=== PATIENT | male | born 1955 | race Hispanic/Latino ===

== ENCOUNTER 2017-01-08 06:51 | Day surgery (SDC) | payer OTHER ==
--- NOTE | 2017-01-04 12:13 | Anesthesia Consultation ---
Anesthesia Consult and Med Hx - Airway Anesthetic Teeth Evaluation: Caps (top front) ROM Head & Neck: Adequate Mental/Hyoid Distance: Adequate Mallampati Class: Class II Intubation Access Assessment: Probably Good - Pulmonary Exam CTA: Yes - Cardiac Exam Cardiac Exam: RRR - Pre-Operative Health Status ASA Pre-Surgery Classification: ASA2 Proposed Anesthetic Plan: General (previous anesthesia for SBO as a child remembers waking up and having to be put back to sleep - concerned about awareness) - Pulmonary Hx Smoking: Yes (used to smoke 1ppd for 20 + yrs now down to 1/4ppd) - Central Nervous System Hx Neuromuscular Disorder: Yes (rheumatoid arthritis 0n steroids) - Other Systems Hx Alcohol Use: Yes (occasional) - Additional Comments Anesthesia Medical History Comments: concerned about awareness under anesthesia - woke up during surgery
[2017-01-04 12:26] LABS: Basophils % (Auto) 0.2 % (0.0-1.8); Hematocrit 48.9 % (35.5-45.6); Hemoglobin 16.4 gm/dl (11.8-15.2); Mean Corpuscular HGB Conc 34 % (32-34); Mean Corpuscular Hemoglobin 30 pg (28-32); Mean Corpuscular Volume 90 fl (84-94); Platelet Count 217 K/mm3 (140-440); Red Blood Count 5.43 M/mm3 (3.65-5.03); Red Cell Distribution Width 13.6 % (13.2-15.2)
[2017-01-04 12:35] LABS: INR 0.96 (0.87-1.13)
[2017-01-04 12:36] LABS: Partial Thromboplastin Time 30.9 Sec. (24.2-36.6)
[2017-01-04 12:40] LABS: Alanine Aminotransferase 21 units/L (7-56); Albumin 4.5 g/dL (3.9-5); Albumin/Globulin Ratio 1.8 %; Alkaline Phosphatase 64 units/L (35-129); Anion Gap 17 mmol/L; Blood Urea Nitrogen 14 mg/dL (9-20); Calcium 9.4 mg/dL (8.4-10.2); Carbon Dioxide 21 mmol/L (22-30); Chloride 104.8 mmol/L (98-107); Glucose 88 mg/dL (75-100); Potassium 4.6 mmol/L (3.6-5.0); Sodium 138 mmol/L (137-145)
[~2017-01-08 06:51] MED LIST: OMNIPAQUE (300 MG) IR ONE
[2017-01-08] MEDS ORDERED: PEPCID IV NR (07:00)
[2017-01-08] MEDS ORDERED: LACTATED RINGERS 1,000 ML IV SCH (07:00)
[2017-01-08] MEDS ORDERED: VERSED IV NR (07:00)
[2017-01-08] MEDS ORDERED: SUBLIMAZE ONE (08:40)
[2017-01-08] MEDS ORDERED: DIPRIVAN 10 MG/ML IV ONE (08:40)
[2017-01-08] MEDS ORDERED: ZOFRAN ONE (08:41)
[2017-01-08] MEDS ORDERED: XYLOCAINE MPF 2% ONE (08:41)
[2017-01-08] MEDS ORDERED: ANCEF/STERILE WATER 2 GM/20 ML 2 GM/20 ML SYRINGE IV NR (09:00)
[2017-01-08] MEDS ORDERED: ZOFRAN IV PRN (09:04)
[2017-01-08] MEDS ORDERED: DILAUDID IV PRN (09:04)
[2017-01-08] MEDS ORDERED: NORCO 5/325 PO PRN (09:04)
[2017-01-08] MEDS ORDERED: NACL 0.9% 0 ML ONE (09:27)
--- NOTE | 2017-01-08 10:17 | Anesthesia Day of Surgery ---
Anesthesia Day of Surgery - Day of Surgery Patient Examined: Yes Patient H&P Reviewed: Yes Patient is NPO: Yes
[2017-01-08] MEDS ORDERED: ePHEDrine SULFATE ONE (10:44)
[2017-01-08] MEDS ORDERED: OMNIPAQUE (300 MG) IR ONE (11:10)
[2017-01-08] MEDS ORDERED: LASIX ONE (11:15)
--- NOTE | 2017-01-08 11:37 | Post Operative Note ---
Date of procedure: 01/08/17 Pre-op diagnosis: hematuria Post-op diagnosis: same Findings: huge intravesical gland Procedure: cysto \ rpg prostate us Anesthesia: GETA Surgeon: KRAIG MELGAR Estimated blood loss: none Pathology: none Condition: stable Disposition: PACU
--- NOTE | 2017-01-08 11:39 | Discharge Summary ---
Short Stay Discharge Plan Activity: other (no straining ) Weight Bearing Status: Full Weight Bearing Diet: low fat, low cholesterol, low salt Special Instructions: other (teach avila care ) Durable Medical Equipment Needed Upon Discharge: other (avila) Follow up with: HEAVEN BARNES [Primary Care Provider] - 7 Days KRAIG MELGAR MD [Staff Physician] - 3 Days
--- NOTE | 2017-01-08 14:39 | Operative Report ---
PREOPERATIVE DIAGNOSES: Hematuria, very large prostate, very large intravesical lobe with normalization of PSA on Proscar and normal MRI of the prostate. POSTOPERATIVE DIAGNOSES: Hematuria, very large prostate, very large intravesical lobe with normalization of PSA on Proscar and normal MRI of the prostate. PROCEDURES: Cystoscopy, attempted retrograde with a huge middle lobe with a right retrograde and prostate ultrasound. SURGEON: Raul Cross MD ANESTHESIA: General. FINDINGS: This is a gentleman with hematuria. He now presents for cystoscopy. PSA came way down on the Proscar and no suspicious areas on MRI. DESCRIPTION OF PROCEDURE: The patient was brought to the operating room and placed on the operating table. Following induction of anesthesia, placed in lithotomy position, prepped and draped in usual sterile fashion. Cystourethroscopy showed very large lateral lobes, quite vascular with some of the vessels that were almost like telangiectasia, especially towards the bladder neck. Once we entered the bladder, there was a huge middle lobe extending up posteriorly, mostly from the left side of the prostate. We could see the right orifice. Retrograde showed some J hooking distal to mid ureter. I did not want to traumatize the orifice to try to fill up the entire collecting system. The left orifice was not visualized at all. He has had a CT scan, which showed no stones, a massively enlarged prostate with significant extension. A very thickened bladder wall. Once, we determined the most likely cause of the blood, did not want ____ prostate and causing significant bleeding. A Jeffers catheter was left and showed sort of [place] tree bladder with the prostate wall up pushing the Jeffers catheter. This was discussed with the patient's , he is on Proscar for about 6 months. He may need an open prostatectomy. The measurement on ultrasound, which showed no suspicious area measured approximately 50 grams prostate, but it is the location of the enlargement, which makes it very difficult to do a TURP if eventually would have to be done. This was discussed with his and we will see how he does ____ on medical therapy, take his catheter out in a day or two. If he improves on Rapaflo, Flomax and Proscar that is fine. Otherwise, he may need a staged procedure with taking out intravesical component in an open fashion. JOB# [id number] KHADIJAH/NTS
--- NOTE | 2017-01-08 16:59 | Fluoroscopy Report ---
Retrograde pyelogram: The initial images are unremarkable prior to contrast administration. Contrast is injected into the distal right ureter filling the distal third with no obvious filling defect. No other images with contrast are included. Impression: Limited exam with no pathology identified.
--- NOTE | 2017-01-08 17:01 | Fluoroscopy Report ---
Operative cystogram: Hematuria. Prostatic enlargement. The bladder is partially distended. There is a somewhat conical shape. The contours appear unremarkable and there no filling defects other than that appears to be a dilated Jeffers balloon.
[2017-01-08 19:35] VITALS: BP 135/92
--- NOTE | 2017-01-09 07:58 | Ultrasound Report ---
ULTRASOUND-GUIDED INTRAOPERATIVE HISTORY: Prostate biopsy. DESCRIPTION OF PROCEDURE: Endorectal ultrasound guidance was provided by radiology during prostate biopsy by Dr. Cross. Prostate volume measures 41.0 cc. Per the operative note, Dr. Cross determined biopsy was not needed. Please correlate with the procedural report.
== END 2017-01-08 13:10 | disposition home or self-care (01) ==
LOC: OR 06:51
PROVIDERS: ATTEND Urology
DX: N40.0 Benign prostatic hyperplasia without lower urinary tract symptoms (principal); N32.89 Other specified disorders of bladder; M06.9 Rheumatoid arthritis, unspecified; F17.210 Nicotine dependence, cigarettes, uncomplicated; Z72.89 Other problems related to lifestyle; Z79.899 Other long term (current) drug therapy
CPT/HCPCS: 36415; 52005; 74420; 76998; 80053; 85025; 85610; 85730; J0690; J1940; J2250; J2405; J2704; J3010; J7120; Q9967; 74430